=== PATIENT | male | born 1990 | race American Indian/Alaskan Native ===

== ENCOUNTER 2020-10-08 12:37 | Emergency (ER) | payer OTHER, SELFPAY ==
[2020-10-08] MEDS ORDERED: levETIRAcetam 1000 MG/NS 0.75% 1,000 MG/100 ML BAG IV ONE (13:16)
[2020-10-08] MEDS ORDERED: diphenhydrAMINE 50 MG/ML VIAL IV ONE (13:16)
[2020-10-08] MEDS ORDERED: METOCLOPRAMIDE 10 MG/2 ML INJ IV ONE (13:16)
[2020-10-08] MEDS ORDERED: KETOROLAC 30 MG/1 ML INJ IV ONE (13:16)
[2020-10-08] MEDS ORDERED: ACETAMINOPHEN 500 MG TAB PO ONE (13:16)
--- NOTE | 2020-10-08 13:17 | Emergency Department Report ---
ED General Adult HPI - General Chief complaint: Headache Stated complaint: HEAD PAIN PUI?: Yes Time Seen by Provider: 10/08/20 13:06 Source: patient, RN notes reviewed Mode of arrival: Ambulatory Limitations: No Limitations - History of Present Illness Initial comments: This patient is a 29-year-old gentleman. He is not known to myself previously. He has a past medical history of body mass index of 30, headaches, and possible seizure or convulsive disorder. The patient presents to the ER today with a complaint of headache, nontraumatic, and sensation that he may have a seizure. The patient states he is on Keppra and supposed to take it twice daily. He is intermittently compliant with his Keppra. He does not know what dose he gets. He does not know the name of the physician who prescribes him his Keppra. He reports being possibly diagnosed with seizure or epilepsy 3 years ago, at another hospital in [place]. He does not know which hospital. The headache is frontal and throbbing. The headache is not sudden or thunderclap in nature. The headache is not maximal in intensity at onset. This is not the worst headache of his life. The patient denies vomiting. The patient denies loss of vision. The patient denies trauma. The patient endorses loss of taste and smell. The patient endorses nonspecific myalgias. The patient denies neck pain or neck stiffness. The patient thinks he may have had a fever to 103 degrees a few days ago. He has had no fever within the past 24 to 48 hours. The patient has not received his Covid vaccination. The patient denies neck pain, chest pain, abdominal pain, shortness of breath, he feels like he has had some diarrhea. -: Gradual, hour(s) Location: head Severity scale (0 -10): 10 Consistency: constant Improves with: none Worsens with: none - Related Data Previous Rx's Medication Instructions Recorded Last Taken Type Acetaminophen [Non-Aspirin Extra 500 mg PO Q6HR PRN #30 tablet 10/08/20 Unknown Rx Strength] Ibuprofen [Motrin] 600 mg PO Q8H PRN #30 tablet 10/08/20 Unknown Rx Metoclopramide [Reglan] 10 mg PO Q6HR PRN #20 tab 10/08/20 Unknown Rx levETIRAcetam [Keppra TAB] 500 mg PO BID #60 tablet 10/08/20 Unknown Rx Allergies Allergy/AdvReac Type Severity Reaction Status Date / Time No Known Allergies Allergy Unverified 10/08/20 12:39 ED Review of Systems ROS: Stated complaint: HEAD PAIN Other details as noted in HPI Constitutional: other (Positive loss of taste and smell) Eyes: denies: eye pain, eye discharge ENT: denies: throat pain Respiratory: denies: wheezing Cardiovascular: denies: chest pain Gastrointestinal: diarrhea. denies: abdominal pain Musculoskeletal: myalgia Neurological: headache. denies: numbness, paresthesias Psychiatric: anxiety ED Past Medical Hx - Past Medical History Previous Medical History?: Yes Hx Headaches / Migraines: Yes Hx Seizures: Yes - Surgical History Past Surgical History?: No - Medications Home Medications: Home Medications Medication Instructions Recorded Confirmed Last Taken Type Acetaminophen [Non-Aspirin Extra 500 mg PO Q6HR PRN #30 tablet 10/08/20 Unknown Rx Strength] Ibuprofen [Motrin] 600 mg PO Q8H PRN #30 tablet 10/08/20 Unknown Rx Metoclopramide [Reglan] 10 mg PO Q6HR PRN #20 tab 10/08/20 Unknown Rx levETIRAcetam [Keppra TAB] 500 mg PO BID #60 tablet 10/08/20 Unknown Rx ED Physical Exam - General Limitations: No Limitations General appearance: alert, in no apparent distress - Head Head exam: Present: atraumatic, normocephalic - Eye Eye exam: Present: normal appearance, PERRL, EOMI. Absent: nystagmus - ENT ENT exam: Present: normal exam, normal orophraynx, mucous membranes moist, normal external ear exam - Neck Neck exam: Present: normal inspection, full ROM. Absent: tenderness, meningismu s - Respiratory Respiratory exam: Present: normal lung sounds bilaterally. Absent: respiratory distress, wheezes, rales, rhonchi, stridor, decreased breath sounds - Cardiovascular Cardiovascular Exam: Present: regular rate, normal rhythm, normal heart sounds. Absent: bradycardia, tachycardia, irregular rhythm, systolic murmur, diastolic murmur, rubs, gallop - GI/Abdominal GI/Abdominal exam: Present: soft. Absent: distended, tenderness, guarding, rebound, rigid, pulsatile mass - Rectal Rectal exam: Present: deferred - Extremities Exam Extremities exam: Present: normal inspection, full ROM, other (2+ pulses noted in the bilateral upper and lower extremities. There is no palpable cord. negative Homans sign. Muscular compartments are soft. The pelvis is stable.). Absent: pedal edema, calf tenderness - Back Exam Back exam: Present: normal inspection, full ROM. Absent: tenderness, CVA tenderness (R), CVA tenderness (L), paraspinal tenderness, vertebral tenderness - Neurological Exam Neurological exam: Present: alert, oriented X3, other (No facial droop. Tongue midline. Extraocular movements intact bilaterally. Facial sensation intact to light touch in V1, V2, V3 distribution bilaterally. 5 and a 5 strength in 4 extremities. Sensation intact to light touch in 4 extremities.). Absent: motor sensory deficit - Psychiatric Psychiatric exam: Present: anxious - Skin Skin exam: Present: warm, dry, intact, normal color. Absent: rash ED Course Vital Signs 10/08/20 10/08/20 10/08/20 12:43 13:30 14:00 Temperature 98.7 F Pulse Rate 78 58 L 55 L Respiratory 28 H 23 9 L Rate Blood Pressure 139/89 136/63 Blood Pressure 135/72 [Right] O2 Sat by Pulse 99 98 100 Oximetry 10/08/20 10/08/20 14:30 15:00 Temperature Pulse Rate 49 L 55 L Respiratory 16 11 L Rate Blood Pressure 140/63 132/78 Blood Pressure [Right] O2 Sat by Pulse 96 100 Oximetry - Reevaluation(s) Reevaluation #1: 10/08/20 14:16 Differential diagnosis, including but not limited to: Migraine headache, tension headache, cluster headache, primary headache disorder otherwise not specified, COVID-19, marijuana use, medication noncompliance Assessment and plan: 29-year-old male, who is currently afebrile, with reassuring vital signs, clinically sober, with a GCS of 15, with no meningeal signs, no fever, headache which is not sudden, thunderclap in nature, and not described as the worst headache of life. Patient reports that this is similar to prior headaches. Place patient on compliance monitor. Initiate isolation precautions. Treat supportively and symptomatically with Tylenol, Toradol, Reglan, Benadryl and Keppra. Patient not hypoxic at this time 10/08/20 15:27 Patient resting comfortably in stretcher. No seizures have been noted. Remains neurologically intact. May be discharged with supportive care Critical care attestation.: If time is entered above; I have spent that time in minutes in the direct care of this critically ill patient, excluding procedure time. ED Disposition Clinical Impression: Headache, History of seizure, Medication refill, Noncompliance, History of marijuana use, Suspected 2019 novel coronavirus infection Disposition: DC-01 TO HOME OR SELFCARE Is pt being admited?: No Does the pt Need Aspirin: No Condition: Good Instructions: Cannabis Use Disorder, COVID-19, Seizure, Adult, [id number] Additional Instructions: As we discussed, the patient most likely has novel coronavirus/COVID. the symptoms of COVID will typically persist 10 to 14 days. There is no cure at this time for COVID. Please make certain to self isolate and self quarantine, follow-up with an outpatient primary care doctor within the next 3 to 5 days, wash hands with soap and water frequently, thoroughly and often, patient may take the prescribed medications as needed and directed. Advance diet and drink plenty of fluids as tolerated. Avoid interactions with the very elderly, very young, and those with chronic medical conditions. Return to the emergency room right away with new pain, worsening pain, migration of pain, projectile vomiting, change in mental status, confusion, inability to tolerate liquid feeds, new, worsened or different symptoms not present on the initial emergency room evaluation. Recommend the patient not drive or operate motor vehicles if he has a seizure or convulsive event. Recommend that patient discontinue/avoid consumption of alcohol, tobacco, smoke products and cannabis products. Recommend that patient follow-up with a primary care doctor within the next week. If patient has a seizure or convulsion, he should follow-up with a primary care doctor or neurologist or return to the emergency room right away. If the patient has a seizure or convulsion, he should not drive or operate motor vehicles for 6 months. Take the medications as needed and directed. Prescriptions: levETIRAcetam [Keppra TAB] 500 mg PO BID #60 tablet Ibuprofen [Motrin] 600 mg PO Q8H PRN #30 tablet PRN Reason: Pain Acetaminophen [Non-Aspirin Extra Strength] 500 mg PO Q6HR PRN #30 tablet PRN Reason: Pain , Severe (7-10) Metoclopramide [Reglan] 10 mg PO Q6HR PRN #20 tab PRN Reason: Headache Referrals: LIAN CERVANTES MD [Referring] - 3-5 Days (neurology) MAL OBANDO MD [Staff Physician] - 3-5 Days (primary care) [facility] [Provider Group] - 3-5 Days (primary care)
[2020-10-08 15:15] VITALS: BP 132/78
== END 2020-10-08 18:00 | disposition home or self-care (01) ==
LOC: ED 12:37
DX: G43.909 Migraine, unspecified, not intractable, without status migrainosus (principal); Z20.822 Contact with and (suspected) exposure to COVID-19; R56.9 Unspecified convulsions; F12.90 Cannabis use, unspecified, uncomplicated; Z79.899 Other long term (current) drug therapy; Z76.0 Encounter for issue of repeat prescription
CPT/HCPCS: 96374; 96375; 99283; J1200; J1885; J1953; J2765

== ENCOUNTER 2020-10-09 16:07 | Emergency (ER) | payer SELFPAY | END 2020-10-09 16:12 | disposition left against medical advice (07) | LOC: ED 16:07 | DX: R05 Cough (principal); Z53.21 Procedure and treatment not carried out due to patient leaving prior to being seen by health care provider ==

== ENCOUNTER 2020-10-31 18:21 | Emergency (ER) | payer OTHER | END 2020-10-31 19:18 | disposition left against medical advice (07) | LOC: ED 18:21 | DX: R10.9 Unspecified abdominal pain (principal); Z53.21 Procedure and treatment not carried out due to patient leaving prior to being seen by health care provider ==